=== PATIENT | female | born 1985 | race Caucasian/White ===

== ENCOUNTER 2018-03-25 21:05 | Emergency (ER) | payer BC ==
[2018-03-25 21:22] VITALS: BP 148/101
--- NOTE | 2018-03-25 21:40 | ED ---
GI/ HPI - HPI Summary HPI Summary: 33 yr old female with increased frequency of urination, and slight dysuria today. No vaginal discharge. No fever, chills or back pain. She is about 7-8 weeks , and just saw Dr Michaels's [employer] office at [facility] on Sunday for Sonogram. She has no pain in abdomen or pelvis. - History of Current Complaint Chief Complaint: UCGU Time Seen by Provider: 03/25/18 21:21 Stated Complaint: UTI SYMPTOMS (8 WKS ) Hx Last Menstrual Period: 06/15/14 Pain Intensity: 0 - Allergy/Home Medications Allergies/Adverse Reactions: Allergies Allergy/AdvReac Type Severity Reaction Status Date / Time nickel Allergy Hives Verified 03/25/18 21:17 seasonal Allergy Congestion Uncoded 03/25/18 21:16 Home Medications: Home Medications 95/Iron Fum/Folic/Dha [ Multivitamin + D] 1 mis PO DAILY [History Confirmed 03/25/18] PMH/Surg Hx/FS Hx/Imm Hx Respiratory History: Reports: Hx Asthma - Surgical History Surgery Procedure, Year, and Place: unblocking of fallopian tube Infectious Disease History: No Infectious Disease History: Denies: Traveled Outside the [place] in Last 30 Days - Family History Known Family History: Positive: None - Social History Occupation: Employed Full-time Alcohol Use: None Substance Use Type: Reports: None Smoking Status (MU): Never Smoked Tobacco Type: eCigarettes Review of Systems Positive: dysuria, frequency All Other Systems Reviewed And Are Negative: Yes Physical Exam Triage Information Reviewed: Yes Vital Signs On Initial Exam: Initial Vitals Temp Pulse Resp BP Pulse Ox 98.2 F 98 16 148/101 100 03/25/18 21:19 03/25/18 21:19 03/25/18 21:19 03/25/18 21:19 03/25/18 21:19 Vital Signs Reviewed: Yes Appearance: Positive: Well-Appearing, No Pain Distress Skin: Positive: Warm, Skin Color Reflects Adequate Perfusion Head/Face: Positive: Normal Head/Face Inspection Eyes: Positive: EOMI ENT: Positive: Normal ENT inspection Neck: Positive: Nontender Respiratory/Lung Sounds: Positive: Clear to Auscultation, Breath Sounds Present Cardiovascular: Positive: RRR. Negative: Murmur Abdomen Description: Positive: Nontender. Negative: CVA Tenderness (R), CVA Tenderness (L) Musculoskeletal: Positive: Strength/ROM Intact Neurological: Positive: Sensory/Motor Intact, Alert, Oriented to Person Place, Time, CN Intact II-III Psychiatric: Positive: Normal Diagnostics - Vital Signs Vital Signs Temp Pulse Resp BP Pulse Ox 03/25/18 21:19 98.2 F 98 16 148/101 100 - Laboratory Lab Results: Lab Results 03/25/18 Range/Units 21:27 POC Urine Color Light yellow POC Urine Clarity Clear POC Urine pH 5.5 (5-9) POC Ur Specif [place] <= 1.005 L (1.010-1.030) POC Urine Protein Negative (Negative) POC Ur Glucose (UA) Negative (Negative) POC Urine Ketones Negative (Negative) POC Urine Blood Negative (Negative) POC Urine Nitrite Negative (Negative) POC Urine Bilirubin Negative (Negative) POC Urine Urobilinogen 0.2 (Negative) POC U Leukocyte Esteras Negative (Negative) Lab Statement: Any lab studies that have been ordered have been reviewed, and results considered in the medical decision making process. GIGU Course/Dx - Course Course Of Treatment: 33 yr old early on. Urine dip neg. BP up a little but she says she is very nervous. She does not want a [employer] exam now; she wants to follow up with her [employer] tomorrow for this and a BP recheck. She is presently comfortable. - Diagnoses Provider Diagnoses: Elevated blood pressure reading, Frequency of urination Discharge - Sign-Out/Discharge Documenting (check all that apply): Patient Departure All imaging exams completed and their final reports reviewed: No Studies - Discharge Plan Condition: Good Disposition: HOME Patient Education Materials: Hypertension (ED), Urinary Urgency and Frequency ( DC) Referrals: Naya Talavera [Primary Care Provider] - 1 Day Additional Instructions: [facility] Website Directions Save [phone] reviews Sales Account Representative-v/stol landing signal officer in [place], [place] Address: [address] [place] [address] [address], [place] [address] Hours: Closed Opens 7AM Tue See your [employer] doctor tomorrow in follow up for your urinary symptoms. and blood pressure recheck. - Billing Disposition and Condition Condition: GOOD Disposition: Home
== END 2018-03-25 21:50 | disposition home or self-care (01) ==
LOC: UCCORT 21:05
DX: O26.91 Pregnancy related conditions, unspecified, first trimester (principal); R35.0 Frequency of micturition; R03.0 Elevated blood-pressure reading, without diagnosis of hypertension; Z3A.08 8 weeks gestation of pregnancy
CPT/HCPCS: 81003; 99211; G0463